=== PATIENT | female | born 1965 | race Caucasian/White ===

== ENCOUNTER 2017-09-26 13:55 | Inpatient (IN) ==
[2017-09-26] MEDS ORDERED: 0.9 % Sodium Chloride 1,000 ML IVC ONE (14:50)
[2017-09-26] MEDS ORDERED: Metoclopramide 10 MG/2 ML VIAL IVP ONE (14:52)
[2017-09-26 15:20] LABS: Basophils % 0.1 %; Eosinophils % 0.1 %; Hematocrit 36.9 % (35.3-44.9); Hemoglobin 13.1 g/dL (11.5-15.4); Immature Granulocytes % 0.5 % (0-4); Lymphocytes % 10.9 %; Mean Corpuscular HGB Conc 35.5 g/dL (31.6-35.5); Mean Corpuscular Hemoglobin 34.7 pg (28.0-33.3); Mean Corpuscular Volume 97.9 fL (83.0-100.0); Mean Platelet Volume 8.6 fL (9.4-12.4); Monocytes # 0.6 K/mcL (0.0-1.3); Monocytes % 6.4 %; Neutrophils # 7.7 K/mcL (1.6-8.9); Platelet Count 143 K/mcL (140-400); Red Blood Count 3.77 M/mcL (3.82-4.97); Red Cell Distribution Width 12.6 % (11.5-14.5)
--- NOTE | 2017-09-26 15:36 | Emergency Department Note ---
Disposition Clinical Impression: Acute hyponatremia Pneumonia Qualifiers: Pneumonia type: due to unspecified organism Laterality: unspecified laterality Lung location: unspecified part of lung Qualified Code(s): J18.9 - Pneumonia, unspecified organism Disposition: Admitted As Inpatient Condition: Fair Referrals: Sally Lynn CNP [Primary Care Provider] - Forms: ED Satisfaction Letter, Work/School Release Time of Disposition: 18:24 Abdominal Pain HPI - General Chief Complaint: ED General Medical Stated Complaint: ABD Pain,Cough Time Seen by Provider: 09/26/17 14:05 Source: patient Nursing Notes Reviewed: Yes Vital Signs Reviewed: Yes - History of Present Illness HPI Narrative: 52-year-old female complains of abdominal pain that has worsened over the past 3 days. Patient states she has been having severe bouts of coughing which she was placed on antibiotics to cover for a sinusitis/possible respiratory infection. Patient states her pain initially was very low maybe 1/10 but is currently 10/10 and worse with coughing. Patient's abdominal pain symptoms are now constant and has a burning character. After arrival here the ED patient noticed an area of ecchymosis in the right upper quadrant of her abdomen. This area of ecchymosis is over patient's most painful area. Patient also admits to associated diarrhea of nonbloody stool in color but no severely foul odors. Pain Scale: 0 - Related Data Home Medications Medication Instructions Recorded Confirmed Baclofen 20 mg PO 2-3XD 09/26/17 09/26/17 Citalopram [CeleXA] 20 mg PO DAILY 09/26/17 09/26/17 Gabapentin [Neurontin] PRN 09/26/17 Ibuprofen [Motrin] 800 mg PO 09/26/17 Lisinopril-HCTZ 20-12.5 [Prinzide 1 each PO 09/26/17 20-12.5] [place]-3/Dha/Epa/Fish Oil [Fish Oil 1 each PO 09/26/17 09/26/17 1,000 mg Softgel] OxyCODONE/APAP 7.5/325 [Percocet 1 each PO Q8HR PRN 09/26/17 09/26/17 7.5/325 MG] Allergies Allergy/AdvReac Type Severity Reaction Status Date / Time Amoxicillin Allergy Vomiting Verified 09/26/17 14:20 Abdominal Pain PMH - Past Medical History Medical history: Reports: non-contributory Female Surgical History: Reports: no surgical history, non-contributory Psychiatric history: Reports: anxiety, depression - Social History Smoking status: Current every day smoker Alcohol use: Reports: unknown, heavy Drug use: Reports: none Physical Exam - General Limitations: no limitations General appearance: alert, in no apparent distress Course - Reevaluation(s) Reevaluation #1: Lab called with a critically low sodium of 117. Labs for urine sodium, creatinine, also probably ordered to investigate for SIADH. Patient does not appear fluid overloaded. When I told the patient about her low sodium she stated that several years ago she had an incident with extremely low sodium but was not told how low it was. She was offered an admission at that time but did not take it because she did not have anybody to take care of her dog. Time: 15:47 Reevaluation #2: 60 g fentanyl order for pain. Patient found to have pneumonia and was started on azithromycin and ceftriaxone for community-acquired pneumonia. Patient understands and accepts decision for admission. Time: 16:48 Vital Signs Temperature 99.2 F 09/26/17 13:58 Pulse Rate 94 09/26/17 13:58 Respiratory Rate 18 09/26/17 13:58 Blood Pressure 152/85 09/26/17 13:58 O2 Sat by Pulse Oximetry 99 09/26/17 13:58 Temperature 99.2 F 09/26/17 13:58 Pulse Rate 99 09/26/17 16:35 Respiratory Rate 18 09/26/17 16:35 Blood Pressure 139/89 09/26/17 16:35 O2 Sat by Pulse Oximetry 96 09/26/17 16:35 Oxygen Delivery Oxygen Delivery Room Air Abdominal Pain - [facility] Narrative Medical decision making narrative: Patient presents with abdominal pain the past several days along with severe cough that was started from recent viral syndrome with associated sinusitis. Patient concern for possible pneumonia, but patient has an area of ecchymosis and right upper quadrant with associated severe tenderness to right lower costal region on the right anterior chest wall as well as right upper quadrant abdominal pain. Patient states she also has complaint of diarrhea but denies any signs of blood in her stool. FAST exam showed no evidence of intra- abdominal bleeding. CT scan abdomen and pelvis with contrast was taken to identify possible peritoneal hemorrhage or other intra-abdominal complication. CT scan was negative for any abnormalities. Chest x-ray however did show multiple opacities consistent with pneumonia bilateral lung maynard. IMPRESSION: Per radiology Scattered mild perihilar and infrahilar opacities, which could represent atelectasis or small infiltrates. Patient was started on 1 g ceftriaxone IV and 500 mg azithromycin IV. Patient was given 10 mg of Reglan and 25 mg of Benadryl for possible migraine headache. She is also started on IV normal saline 1 L. Lab work identified severe hyponatremia at 117. Patient's IV normal saline was slowed down to keep vein open rate at 75 mL per hour. Urine sodium, creatinine and osmolality was ordered. Given patient's hyponatremia and pneumonia patient is being admitted for further evaluation and treatment. The patient understands and agrees to treatment and plan. Dr. Diamond the hospitalist as accepted patient for admission at 1710 hrs. - Lab Data Lab results reviewed: Yes I reviewed the patient's lab results. Lab results narrative: Short CBC 09/26/17 Range/Units 15:00 WBC 9.4 (4.3-11.1) K/mcL Hgb 13.1 (11.5-15.4) g/dL Hct 36.9 (35.3-44.9) % Plt Count 143 (140-400) K/mcL Neutrophils # 7.7 (1.6-8.9) K/mcL BMP 09/26/17 Range/Units 15:00 Sodium 117 L* (136-145) mEq/L Potassium 3.5 (3.5-5.1) mEq/L Chloride 87 L (98-107) mEq/L Carbon Dioxide 20 L (23-29) mEq/L BUN 9 (6-20) mg/dL Creatinine 0.75 (0.60-1.20) mg/dL Glucose 124 H (70-105) mg/dL Calcium 8.6 (8.6-10.3) mg/dL Liver Function 09/26/17 Range/Units 15:00 Total Bilirubin 0.3 (0.3-1.0) mg/dL Direct Bilirubin 0.2 (0.0-0.2) mg/dL AST 40 H (13-39) Units/L ALT 29 (7-52) Units/L Alkaline Phosphatase 73 (34-104) Units/L Albumin 4.1 (3.5-5.7) g/dL Result diagrams: 09/26/17 15:00 09/26/17 15:00 Lab Results 09/26/17 09/26/17 09/26/17 Range/Units 15:00 15:00 15:00 WBC 9.4 (4.3-11.1) K/mcL RBC 3.77 L (3.82-4.97) M/mcL Hgb 13.1 (11.5-15.4) g/dL Hct 36.9 (35.3-44.9) % MCV 97.9 (83.0-100.0) fL MCH 34.7 H (28.0-33.3) pg MCHC 35.5 (31.6-35.5) g/dL RDW 12.6 (11.5-14.5) % Plt Count 143 (140-400) K/mcL MPV 8.6 L (9.4-12.4) fL Immature Gran % 0.5 (0-4) % Seg Neutrophils % 82.0 % Lymphocytes % 10.9 % Monocytes % 6.4 % Eosinophils % 0.1 % Basophils % 0.1 % Neutrophils # 7.7 (1.6-8.9) K/mcL Lymphocytes # 1.0 (0.6-4.6) K/mcL Monocytes # 0.6 (0.0-1.3) K/mcL Eosinophils # 0.0 (0.0-0.6) K/mcL Basophils # 0.0 (0.0-0.2) K/mcL Sodium 117 L* (136-145) mEq/L Potassium 3.5 (3.5-5.1) mEq/L Chloride 87 L (98-107) mEq/L Carbon Dioxide 20 L (23-29) mEq/L BUN 9 (6-20) mg/dL Creatinine 0.75 (0.60-1.20) mg/dL Est GFR ( Amer) > 60 (> 60) Est GFR (Non-Af Amer) > 60 (> 60) BUN/Creatinine Ratio 12 (6-26) Glucose 124 H (70-105) mg/dL Calculated Osmolality 244 L (280-300) Calcium 8.6 (8.6-10.3) mg/dL Total Bilirubin 0.3 (0.3-1.0) mg/dL Direct Bilirubin 0.2 (0.0-0.2) mg/dL Indirect Bilirubin 0.1 (0.0-1.2) mg/dL AST 40 H (13-39) Units/L ALT 29 (7-52) Units/L Alkaline Phosphatase 73 (34-104) Units/L Serum Total Protein 6.7 (6.4-8.9) g/dL Albumin 4.1 (3.5-5.7) g/dL Globulin 2.6 (2.4-3.5) g/dL Albumin/Globulin Ratio 1.6 (1.1-2.2) Lipase 101 H (11-82) Units/L TSH 0.879 (0.340-5.600) mcIU/mL Urine Creatinine mg/dL Urine Sodium mEq/L 09/26/17 09/26/17 Range/Units 16:01 16:01 WBC (4.3-11.1) K/mcL RBC (3.82-4.97) M/mcL Hgb (11.5-15.4) g/dL Hct (35.3-44.9) % MCV (83.0-100.0) fL MCH (28.0-33.3) pg MCHC (31.6-35.5) g/dL RDW (11.5-14.5) % Plt Count (140-400) K/mcL MPV (9.4-12.4) fL Immature Gran % (0-4) % Seg Neutrophils % % Lymphocytes % % Monocytes % % Eosinophils % % Basophils % % Neutrophils # (1.6-8.9) K/mcL Lymphocytes # (0.6-4.6) K/mcL Monocytes # (0.0-1.3) K/mcL Eosinophils # (0.0-0.6) K/mcL Basophils # (0.0-0.2) K/mcL Sodium (136-145) mEq/L Potassium (3.5-5.1) mEq/L Chloride (98-107) mEq/L Carbon Dioxide (23-29) mEq/L BUN (6-20) mg/dL Creatinine (0.60-1.20) mg/dL Est GFR ( Amer) (> 60) Est GFR (Non-Af Amer) (> 60) BUN/Creatinine Ratio (6-26) Glucose (70-105) mg/dL Calculated Osmolality (280-300) Calcium (8.6-10.3) mg/dL Total Bilirubin (0.3-1.0) mg/dL Direct Bilirubin (0.0-0.2) mg/dL Indirect Bilirubin (0.0-1.2) mg/dL AST (13-39) Units/L ALT (7-52) Units/L Alkaline Phosphatase (34-104) Units/L Serum Total Protein (6.4-8.9) g/dL Albumin (3.5-5.7) g/dL Globulin (2.4-3.5) g/dL Albumin/Globulin Ratio (1.1-2.2) Lipase (11-82) Units/L TSH (0.340-5.600) mcIU/mL Urine Creatinine 18 mg/dL Urine Sodium 39.4 mEq/L - Radiology Data Radiology results reviewed: Yes I reviewed the patient's radiology results. Chest X-Ray 09/26/17 14:48 IMPRESSION: Scattered mild perihilar and infrahilar opacities, which could represent atelectasis or small infiltrates. D/ / Gideon Salamanca MD / Gideon Salamanca MD Interpreting Provider: Gideon Salamanca MD Abdomen/Pelvis CT 09/26/17 15:20 IMPRESSION: Unremarkable CT abdomen and pelvis without evidence of acute process. Degenerative grade 1 anterolisthesis L4 on L5. Calcific atherosclerotic disease aorta. D/ / Robert Mon / Robert Mon Interpreting Provider: Robert Mon
--- NOTE | 2017-09-26 15:37 | Emergency Department Note ---
Disposition Clinical Impression: Acute hyponatremia Pneumonia Qualifiers: Pneumonia type: due to unspecified organism Laterality: unspecified laterality Lung location: unspecified part of lung Qualified Code(s): J18.9 - Pneumonia, unspecified organism Disposition: Admitted As Inpatient Condition: Good General Adult HPI - General Chief complaint: ED General Medical Stated complaint: ABD Pain,Cough Time Seen by Provider: 09/26/17 14:05 Source: patient Limitations: no limitations - History of Present Illness Pain Scale: 0 - Related Data Home Medications Medication Instructions Recorded Confirmed Baclofen 20 mg PO TID 09/26/17 09/26/17 Citalopram [CeleXA] 20 mg PO DAILY 09/26/17 09/27/17 Gabapentin [Neurontin] 800 mg PO TID 09/26/17 09/27/17 Lisinopril-HCTZ 20-12.5 [Prinzide 1 each PO DAILY 09/26/17 09/27/17 20-12.5] [place]-3/Dha/Epa/Fish Oil [Fish Oil 1 each PO HS 09/26/17 09/27/17 1,000 mg Softgel] OxyCODONE/APAP 7.5/325 [Percocet 1 each PO Q6HR PRN 09/26/17 09/26/17 7.5/325 MG] Fluticasone Propionate Nasal 1 spray NS DAILY 09/27/17 09/27/17 [Flonase] Ranitidine HCl [Zantac 75] 75 mg PO QAM 09/27/17 09/27/17 Previous Rx's Medication Instructions Recorded Azithromycin [Zithromax] 250 mg PO DAILY 5 Days #5 tablet 09/28/17 Cefdinir [Omnicef] 300 mg PO BID 5 Days #10 capsule 09/28/17 Allergies Allergy/AdvReac Type Severity Reaction Status Date / Time Amoxicillin Allergy Vomiting Verified 09/27/17 13:02 Past Medical History - Past Medical History Medical history: Reports: non-contributory Psychiatric history: Reports: anxiety, depression - Social History Smoking Status: Current every day smoker Smokeless Tobacco Status: No Alcohol use: Reports: unknown, heavy Drug use: Reports: none Physical Exam - General Limitations: no limitations General appearance: alert, in no apparent distress Course Vital Signs Temperature 99.2 F 09/26/17 13:58 Pulse Rate 94 09/26/17 13:58 Respiratory Rate 18 09/26/17 13:58 Blood Pressure 152/85 09/26/17 13:58 O2 Sat by Pulse Oximetry 99 09/26/17 13:58 Temperature 97.5 F L 09/28/17 16:44 Pulse Rate 85 09/28/17 16:44 Respiratory Rate 17 09/28/17 16:44 Blood Pressure 125/78 09/28/17 16:44 O2 Sat by Pulse Oximetry 98 09/28/17 16:44 Oxygen Delivery Oxygen Delivery Room Air Medical Decision Making - Lab Data Result diagrams: 09/28/17 03:43 09/28/17 03:43 Lab Results 09/26/17 09/26/17 09/26/17 Range/Units 15:00 15:00 15:00 WBC 9.4 (4.3-11.1) K/mcL RBC 3.77 L (3.82-4.97) M/mcL Hgb 13.1 (11.5-15.4) g/dL Hct 36.9 (35.3-44.9) % MCV 97.9 (83.0-100.0) fL MCH 34.7 H (28.0-33.3) pg MCHC 35.5 (31.6-35.5) g/dL RDW 12.6 (11.5-14.5) % Plt Count 143 (140-400) K/mcL MPV 8.6 L (9.4-12.4) fL Immature Gran % 0.5 (0-4) % Seg Neutrophils % 82.0 % Lymphocytes % 10.9 % Monocytes % 6.4 % Eosinophils % 0.1 % Basophils % 0.1 % Neutrophils # 7.7 (1.6-8.9) K/mcL Lymphocytes # 1.0 (0.6-4.6) K/mcL Monocytes # 0.6 (0.0-1.3) K/mcL Eosinophils # 0.0 (0.0-0.6) K/mcL Basophils # 0.0 (0.0-0.2) K/mcL Sodium 117 L* (136-145) mEq/L Potassium 3.5 (3.5-5.1) mEq/L Chloride 87 L (98-107) mEq/L Carbon Dioxide 20 L (23-29) mEq/L BUN 9 (6-20) mg/dL Creatinine 0.75 (0.60-1.20) mg/dL Est GFR ( Amer) > 60 (> 60) Est GFR (Non-Af Amer) > 60 (> 60) BUN/Creatinine Ratio 12 (6-26) Glucose 124 H (70-105) mg/dL Calculated Osmolality 244 L (280-300) Calcium 8.6 (8.6-10.3) mg/dL Total Bilirubin 0.3 (0.3-1.0) mg/dL Direct Bilirubin 0.2 (0.0-0.2) mg/dL Indirect Bilirubin 0.1 (0.0-1.2) mg/dL AST 40 H (13-39) Units/L ALT 29 (7-52) Units/L Alkaline Phosphatase 73 (34-104) Units/L Serum Total Protein 6.7 (6.4-8.9) g/dL Albumin 4.1 (3.5-5.7) g/dL Globulin 2.6 (2.4-3.5) g/dL Albumin/Globulin Ratio 1.6 (1.1-2.2) Lipase 101 H (11-82) Units/L TSH 0.879 (0.340-5.600) mcIU/mL Urine Color (Yellow) Urine Clarity (Clear) Urine pH (5.0-8.0) pH Units Ur Specific [place] (1.010-1.025) Urine Protein (Neg-Trace) mg/dL Urine Glucose (UA) (Normal) mg/dL Urine Ketones (Negative) mg/dL Urine Blood (Negative) Urine Nitrite (Negative) Urine Bilirubin (Negative) Urine Urobilinogen (Normal) mg/dL Ur Leukocyte Esterase (Negative) Urine Microscopic RBC (0-3) per hpf Urine Microscopic WBC (0-3) per hpf Ur Squamous Epith Cells (None-Few) per lpf Urine Bacteria (None-Few) per hpf Hyaline Casts (None-Few) per lpf Urine Osmolality (300-1090) mOsm/kg Urine Creatinine mg/dL Urine Sodium mEq/L 09/26/17 09/26/17 09/26/17 Range/Units 15:42 15:42 16:01 WBC (4.3-11.1) K/mcL RBC (3.82-4.97) M/mcL Hgb (11.5-15.4) g/dL Hct (35.3-44.9) % MCV (83.0-100.0) fL MCH (28.0-33.3) pg MCHC (31.6-35.5) g/dL RDW (11.5-14.5) % Plt Count (140-400) K/mcL MPV (9.4-12.4) fL Immature Gran % (0-4) % Seg Neutrophils % % Lymphocytes % % Monocytes % % Eosinophils % % Basophils % % Neutrophils # (1.6-8.9) K/mcL Lymphocytes # (0.6-4.6) K/mcL Monocytes # (0.0-1.3) K/mcL Eosinophils # (0.0-0.6) K/mcL Basophils # (0.0-0.2) K/mcL Sodium (136-145) mEq/L Potassium (3.5-5.1) mEq/L Chloride (98-107) mEq/L Carbon Dioxide (23-29) mEq/L BUN (6-20) mg/dL Creatinine (0.60-1.20) mg/dL Est GFR ( Amer) (> 60) Est GFR (Non-Af Amer) (> 60) BUN/Creatinine Ratio (6-26) Glucose (70-105) mg/dL Calculated Osmolality (280-300) Calcium (8.6-10.3) mg/dL Total Bilirubin (0.3-1.0) mg/dL Direct Bilirubin (0.0-0.2) mg/dL Indirect Bilirubin (0.0-1.2) mg/dL AST (13-39) Units/L ALT (7-52) Units/L Alkaline Phosphatase (34-104) Units/L Serum Total Protein (6.4-8.9) g/dL Albumin (3.5-5.7) g/dL Globulin (2.4-3.5) g/dL Albumin/Globulin Ratio (1.1-2.2) Lipase (11-82) Units/L TSH (0.340-5.600) mcIU/mL Urine Color Yellow (Yellow) Urine Clarity Clear (Clear) Urine pH 6.5 (5.0-8.0) pH Units Ur Specific [place] 1.009 L (1.010-1.025) Urine Protein Negative (Neg-Trace) mg/dL Urine Glucose (UA) Normal (Normal) mg/dL Urine Ketones Negative (Negative) mg/dL Urine Blood Trace H (Negative) Urine Nitrite Negative (Negative) Urine Bilirubin Negative (Negative) Urine Urobilinogen Normal (Normal) mg/dL Ur Leukocyte Esterase Negative (Negative) Urine Microscopic RBC 0-3 (0-3) per hpf Urine Microscopic WBC 0-3 (0-3) per hpf Ur Squamous Epith Cells Few (None-Few) per lpf Urine Bacteria None Seen (None-Few) per hpf Hyaline Casts None Seen (None-Few) per lpf Urine Osmolality 164 L (300-1090) mOsm/kg Urine Creatinine mg/dL Urine Sodium 39.4 mEq/L 09/26/17 Range/Units 16:01 WBC (4.3-11.1) K/mcL RBC (3.82-4.97) M/mcL Hgb (11.5-15.4) g/dL Hct (35.3-44.9) % MCV (83.0-100.0) fL MCH (28.0-33.3) pg MCHC (31.6-35.5) g/dL RDW (11.5-14.5) % Plt Count (140-400) K/mcL MPV (9.4-12.4) fL Immature Gran % (0-4) % Seg Neutrophils % % Lymphocytes % % Monocytes % % Eosinophils % % Basophils % % Neutrophils # (1.6-8.9) K/mcL Lymphocytes # (0.6-4.6) K/mcL Monocytes # (0.0-1.3) K/mcL Eosinophils # (0.0-0.6) K/mcL Basophils # (0.0-0.2) K/mcL Sodium (136-145) mEq/L Potassium (3.5-5.1) mEq/L Chloride (98-107) mEq/L Carbon Dioxide (23-29) mEq/L BUN (6-20) mg/dL Creatinine (0.60-1.20) mg/dL Est GFR ( Amer) (> 60) Est GFR (Non-Af Amer) (> 60) BUN/Creatinine Ratio (6-26) Glucose (70-105) mg/dL Calculated Osmolality (280-300) Calcium (8.6-10.3) mg/dL Total Bilirubin (0.3-1.0) mg/dL Direct Bilirubin (0.0-0.2) mg/dL Indirect Bilirubin (0.0-1.2) mg/dL AST (13-39) Units/L ALT (7-52) Units/L Alkaline Phosphatase (34-104) Units/L Serum Total Protein (6.4-8.9) g/dL Albumin (3.5-5.7) g/dL Globulin (2.4-3.5) g/dL Albumin/Globulin Ratio (1.1-2.2) Lipase (11-82) Units/L TSH (0.340-5.600) mcIU/mL Urine Color (Yellow) Urine Clarity (Clear) Urine pH (5.0-8.0) pH Units Ur Specific [place] (1.010-1.025) Urine Protein (Neg-Trace) mg/dL Urine Glucose (UA) (Normal) mg/dL Urine Ketones (Negative) mg/dL Urine Blood (Negative) Urine Nitrite (Negative) Urine Bilirubin (Negative) Urine Urobilinogen (Normal) mg/dL Ur Leukocyte Esterase (Negative) Urine Microscopic RBC (0-3) per hpf Urine Microscopic WBC (0-3) per hpf Ur Squamous Epith Cells (None-Few) per lpf Urine Bacteria (None-Few) per hpf Hyaline Casts (None-Few) per lpf Urine Osmolality (300-1090) mOsm/kg Urine Creatinine 18 mg/dL Urine Sodium mEq/L Attestation Statement - Attestation Attestation: I examined this patient and my medical decision-making was reviewed with the [employer]/PA/Advanced Practice Nurse/Resident Physician. I agree with the documented findings, disposition and treatment plan as described except to the extent set forth below. The patient presents with a cough which has been going on for the last 3 days and then after the cough started developed abdominal pain and does have a bruise on the abdomen and does have moderate pain with palpation but soft without rigidity, rebound, guarding and the patient will have testing including CT scan of the abdomen however likely this is more secondary to muscular strain secondary to a cough from either a sinusitis or viral syndrome. Results pending. [id number] I did review the EKG showing sinus tachycardia with a rate of 100 and without acute ischemic changes or evidence of arrhythmia. The patient is profoundly hyponatremic and she did receive approximately 500 mL of normal daily and the sodium level return this was stopped but can be resumed pending further ongoing evaluation and management. The patient will be admitted to the hospital. [id number]
[2017-09-26 15:48] LABS: Alanine Aminotransferase 29 Units/L (7-52); Albumin 4.1 g/dL (3.5-5.7); Albumin/Globulin Ratio 1.6 (1.1-2.2); Alkaline Phosphatase 73 Units/L (34-104); Aspartate Amino Transferase 40 Units/L (13-39); Bilirubin,Direct 0.2 mg/dL (0.0-0.2); Bilirubin,Indirect 0.1 mg/dL (0.0-1.2); Bilirubin,Total 0.3 mg/dL (0.3-1.0); Blood Urea Nitrogen 9 mg/dL (6-20); Calcium 8.6 mg/dL (8.6-10.3); Carbon Dioxide 20 mEq/L (23-29); Chloride 87 mEq/L (98-107); Globulin 2.6 g/dL (2.4-3.5); Glucose 124 mg/dL (70-105); Osmolality,Calculated 244 (280-300); Potassium 3.5 mEq/L (3.5-5.1); Sodium 117 mEq/L (136-145); Total Protein 6.7 g/dL (6.4-8.9)
[2017-09-26 16:07] LABS: BUN/Creatinine Ratio 12 (6-26); eGFR For African Americans > 60 (> 60); eGFR For Non-African Americans > 60 (> 60)
[2017-09-26 16:32] LABS: Thyroid Stimulating Hormone 0.879 mcIU/mL (0.340-5.600)
[2017-09-26] MEDS ORDERED: *HR* FentaNYL (PF) 100 MCG/2 ML VIAL IVP ONE (16:47)
[2017-09-26] MEDS ORDERED: Azithromycin 500 MG in D5% in Water 250 ML IVPB ONE (16:56)
[2017-09-26] MEDS ORDERED: cefTRIAXone 2,000 MG in Water for inj. (sterile) 20 ML IVP ONE (16:56)
--- NOTE | 2017-09-26 18:36 | Internal Med History&Physical ---
Date of Encounter: 09/26/17 Time of Encounter: 18:00 Assessment and Plan (1) Pneumonia Current visit: Yes Status: Acute Patient with nonproductive cough and shortness of breath and chest x-ray with concerns for infiltrate Will continue IV ceftriaxone and azithromycin for acute [place] acquired pneumonia Qualifiers: Pneumonia type: due to unspecified organism Laterality: unspecified laterality Lung location: unspecified part of lung Qualified Code(s): J18.9 - Pneumonia, unspecified organism (2) Acute hyponatremia Current visit: Yes Status: Acute Patient reports of a history of hyponatremia in the past approximately 1 year ago but unsure of details Sodium this admission [address] on fluid restriction and give normal saline Monitor sodium levels (3) Alcohol dependence Current visit: Yes Status: Acute We will cover with CIWA protocol Qualifiers: Qualified Code(s): F10.20 - Alcohol dependence, uncomplicated (4) HTN (hypertension), benign Current visit: Yes Status: Acute Controlled; continue home medications (5) DVT prophylaxis Current visit: Yes Status: Acute Subcutaneous heparin Internal Medicine - H&P: HPI Chief complaint: Cough/shortness of breath Admitted From: Home Plans for Post Hospital Care: Home History of present illness: Patient is a 52-year-old female with past medical history significant for alcohol dependence, hypertension and chronic pain who presents to the ER on 09/26 due to nonproductive cough and shortness of breath. Patient reports a one-week history of nonproductive cough and a 2 day history of shortness of breath. She reports of associated symptoms of fever/chills. Patient reports of going to primary care provider and being diagnosed with sinusitis and given a course of antibiotics. Patient reported no improvement and decided to come to the ER for evaluation In the ER, patient was found to have hyponatremia with a sodium of 117. Chest x -ray showed findings concerning for infiltrate. She will be admitted to medical surgical floor for hyponatremia and community acquired pneumonia management. Past Med Surg Social Fam HX - Past Medical History Medical history: non-contributory Psychiatric history: anxiety, depression - Past Surgical History Surgical History: no surgical history - Social History Smoking Status: Current every day smoker Packs per day: 1 Smokeless Tobacco Status: No Alcohol use: unknown, heavy Drug use: none Internal Medicine - H&P: Meds Baclofen 20 mg PO 2-3XD 09/26/17 [History] Citalopram [CeleXA] 20 mg PO DAILY 09/26/17 [History] Gabapentin [Neurontin] PRN 09/26/17 [History] Ibuprofen [Motrin] 800 mg PO 09/26/17 [History] Lisinopril-HCTZ 20-12.5 [Prinzide 20-12.5] 1 each PO 09/26/17 [History] [place]-3/Dha/Epa/Fish Oil [Fish Oil 1,000 mg Softgel] 1 each PO 09/26/17 [History ] OxyCODONE/APAP 7.5/325 [Percocet 7.5/325 MG] 1 each PO Q8HR PRN 09/26/17 [ History] 3 Allergy/AdvReac Type Severity Reaction Status Date / Time Amoxicillin Allergy Vomiting Verified 09/26/17 14:20 All Systems PM: A 10-system review of systems was performed and is negative for pertinent findings except as documented above in the HPI. - Constitutional Vitals: Temp Pulse Resp BP Pulse Ox 99.4 F 110 16 112/72 95 09/26/17 18:13 09/26/17 18:13 09/26/17 18:13 09/26/17 18:13 09/26/17 18:13 General appearance: Present: A&O X 3 - Head Head exam: Present: normocephalic - Eye Eye exam: Present: normal appearance - ENT ENT exam: Present: mucous membranes dry, mucous membranes moist - Respiratory Respiratory exam: Present: CTAB. Absent: accessory muscle use, rales, rhonchi, wheezes - Cardiovascular Cardiovascular exam: Present: RRR, +S1, +S2. Absent: diastolic murmur, gallop, rubs, systolic murmur - GI/Abdominal GI/Abdominal exam: Present: soft, tenderness. Absent: distended - Extremities Exam Extremities exam: Absent: pedal edema - Neurological Exam Neurological exam: Present: oriented X3 - Psychiatric Psychiatric exam: Present: normal mood - Skin Skin exam: Present: normal color Internal Med - H&P Results - Labs CBC & Chem 7: 09/26/17 15:00 09/26/17 15:00
[2017-09-26] MEDS ORDERED: Naloxone 0.4 MG/ML INJ IVP PRN (18:42)
[2017-09-26] MEDS ORDERED: *HR* LORazepam 2 MG/ML VIAL IVP PRN (18:47)
[2017-09-26] MEDS: 0.9 % Sodium Chloride 1,000 ML IVC SCH (19:04)
[2017-09-26 19:59] LABS: Bilirubin,Urine Negative (Negative); Clarity,Urine Clear (Clear); Color,Urine Yellow (Yellow); Glucose,Urine (UA) Normal (Normal); Ketones,Urine Negative (Negative); Leukocyte Esterase,Urine Negative (Negative); Nitrite,Urine Negative (Negative); PH,Urine 6.5 pH Units (5.0-8.0); Protein,Urine Negative (Neg-Trace); Specific Gravity,Urine 1.009 (1.010-1.025); Urobilinogen,Urine Normal (Normal)
[2017-09-26] MEDS ORDERED: Acetaminophen 325 MG TABLET PO PRN (20:01)
[2017-09-26 20:05] LABS: Bacteria,Urine None Seen per hpf (None-Few); Blood,Urine Trace (Negative); Hyaline Casts,Urine None Seen per lpf (None-Few); RBC,Urine 0-3 per hpf (0-3); Squamous Epithelial Cell,Urine Few per lpf (None-Few); WBC,Urine 0-3 per hpf (0-3)
[2017-09-26] MEDS: Nicotine 21 MG PATCH.TD24 TD SCH (20:40)
[2017-09-26] MEDS: *HR* OxyCODONE/APAP 7.5/325 TABLET PO PRN (20:40)
[2017-09-26] MEDS: *HR* Heparin 5,000 UNIT/ML VIAL SQ SCH (23:50)
[2017-09-26] MEDS: Baclofen 10 MG TABLET PO SCH (23:50)
[2017-09-26] MEDS: Gabapentin 400 MG CAPSULE PO SCH (23:50)
[2017-09-27 05:42] LABS: Hematocrit 37.1 % (35.3-44.9); Hemoglobin 13.2 g/dL (11.5-15.4); Immature Granulocytes % 0.6 % (0-4); Lymphocytes # 1.4 K/mcL (0.6-4.6); Lymphocytes % 19.7 %; Mean Corpuscular HGB Conc 35.6 g/dL (31.6-35.5); Mean Corpuscular Hemoglobin 35.1 pg (28.0-33.3); Mean Corpuscular Volume 98.7 fL (83.0-100.0); Mean Platelet Volume 9.1 fL (9.4-12.4); Monocytes # 0.8 K/mcL (0.0-1.3); Monocytes % 10.3 %; Platelet Count 168 K/mcL (140-400); Red Blood Count 3.76 M/mcL (3.82-4.97); Red Cell Distribution Width 12.6 % (11.5-14.5); Segmented Neutrophils % 69.4 %
[2017-09-27 05:50] LABS: Neutrophils # 5.1 K/mcL (1.6-8.9)
[2017-09-27 06:00] LABS: BUN/Creatinine Ratio 10 (6-26); Blood Urea Nitrogen 6 mg/dL (6-20); Calcium 8.6 mg/dL (8.6-10.3); Carbon Dioxide 25 mEq/L (23-29); Chloride 96 mEq/L (98-107); Glucose 103 mg/dL (70-105); Osmolality,Calculated 264 (280-300); Potassium 3.8 mEq/L (3.5-5.1); Sodium 128 mEq/L (136-145); eGFR For African Americans > 60 (> 60); eGFR For Non-African Americans > 60 (> 60)
[2017-09-27] MEDS: *HR* Heparin 5,000 UNIT/ML VIAL SQ SCH ×3 (06:01→22:11)
[2017-09-27 06:09] LABS: Platelet Estimate Normal (Normal); Reactive Lymphocytes Present (Not Present); Toxic Granulation Present (Not Present)
[2017-09-27] MEDS: Lisinopril-HCTZ 20-12.5mg TABLET PO SCH (07:55)
[2017-09-27] MEDS: Baclofen 10 MG TABLET PO SCH ×3 (07:55→22:11)
[2017-09-27] MEDS: Thiamine (B-1) 100 MG TABLET PO SCH (07:55)
[2017-09-27] MEDS: Vitamin B Complex/Vit C/Vit E 1 EACH TABLET PO SCH (07:55)
[2017-09-27] MEDS: Folic Acid 1 MG TABLET PO SCH (07:56)
[2017-09-27] MEDS: Nicotine 21 MG PATCH.TD24 TD SCH (07:56)
[2017-09-27] MEDS: *HR* OxyCODONE/APAP 7.5/325 TABLET PO PRN ×2 (08:03→15:38)
[2017-09-27] MEDS: 0.9 % Sodium Chloride 1,000 ML IVC SCH (11:18)
--- NOTE | 2017-09-27 18:12 | Internal Med Progress Note ---
Date of Encounter: 09/27/17 Time of Encounter: 18:12 - Assessment and plan (1) Pneumonia Current Visit: Yes Status: Acute Assessment and plan: Improved. Continue azithromycin and rocephin. Recheck CBC in AM. Qualifiers: Pneumonia type: due to unspecified organism Laterality: unspecified laterality Lung location: unspecified part of lung Qualified Code(s): J18.9 - Pneumonia, unspecified organism (2) Acute hyponatremia Current Visit: Yes Status: Acute Assessment and plan: Improving. Stopped IVF as tolerating PO. Recheck BMP in AM. (3) Alcohol dependence Current Visit: Yes Status: Chronic Assessment and plan: No withdrawal symptoms. Continue to cover with CIWA protocol. Qualifiers: Qualified Code(s): F10.20 - Alcohol dependence, uncomplicated (4) HTN (hypertension), benign Current Visit: Yes Status: Chronic Assessment and plan: Continue home medications. (5) DVT prophylaxis Current Visit: Yes Status: Acute Assessment and plan: Continue SC heparin. - Time Spent With Patient less than 15 minutes - Subjective Interval history: Patient had no acute events overnight. She states that she is feeling much better this AM. She denies chest pain, SOB, fever, or chills. She has no new complaints. - Constitutional Vitals: Temp Pulse Resp BP Pulse Ox 100.8 F H 93 16 116/78 95 09/27/17 15:51 09/27/17 15:51 09/27/17 15:51 09/27/17 15:51 09/27/17 15:51 General appearance: Present: cooperative, A&O X 3, pleasant, no acute distress, answers questions appropriately - Respiratory Respiratory exam: Present: CTAB. Absent: accessory muscle use, rales, rhonchi, wheezes Additional comments: Normal WOB - Cardiovascular Cardiovascular exam: Present: RRR, +S1, +S2. Absent: diastolic murmur, gallop, rubs, systolic murmur Additional comments: No BLE edema - GI/Abdominal GI/Abdominal exam: Present: normal bowel sounds, soft. Absent: distended, hepatomegaly, mass, splenomegaly, tenderness - Psychiatric Psychiatric exam: Present: normal affect, normal mood. Absent: anxious, depressed - Skin Skin exam: Present: dry, intact, warm. Absent: cyanosis, rash Internal Medicine: Result - Labs CBC & Chem 7: 09/28/17 03:43 09/28/17 03:43 Labs: Short CBC 09/27/17 Range/Units 04:24 WBC 7.3 (4.3-11.1) K/mcL Hgb 13.2 (11.5-15.4) g/dL Hct 37.1 (35.3-44.9) % Plt Count 168 (140-400) K/mcL Neutrophils # 5.1 (1.6-8.9) K/mcL BMP 09/26/17 09/27/17 09/27/17 20:16 00:11 04:24 Sodium 125 L 126 L 128 L Potassium 3.8 Chloride 96 L Carbon Dioxide 25 BUN 6 Creatinine 0.62 Glucose 103 Calcium 8.6 Consult Discharge Plan - Plan Referrals: Sally Lynn CNP [Primary Care Provider] -
[2017-09-27] MEDS ORDERED: cefTRIAXone 2,000 MG in Water for inj. (sterile) 20 ML 20 ML IVP SCH (18:44)
[2017-09-27] MEDS ORDERED: Azithromycin 500 MG in D5% in Water 250 ML IVPB SCH (19:00)
[2017-09-27] MEDS ORDERED: (Fish Oil 1,000 Mg Softgel) PO SCH (21:00)
[2017-09-27] MEDS: Gabapentin 400 MG CAPSULE PO SCH (22:11)
[2017-09-28 04:25] LABS: Basophils % 0.1 %; Eosinophils % 0.1 %; Hematocrit 34.9 % (35.3-44.9); Hemoglobin 12.5 g/dL (11.5-15.4); Immature Granulocytes % 0.4 % (0-4); Lymphocytes % 26.2 %; Mean Corpuscular HGB Conc 35.8 g/dL (31.6-35.5); Mean Corpuscular Hemoglobin 35.3 pg (28.0-33.3); Mean Corpuscular Volume 98.6 fL (83.0-100.0); Mean Platelet Volume 9.3 fL (9.4-12.4); Monocytes # 0.8 K/mcL (0.0-1.3); Monocytes % 10.2 %; Neutrophils # 4.7 K/mcL (1.6-8.9); Platelet Count 198 K/mcL (140-400); Red Blood Count 3.54 M/mcL (3.82-4.97); Red Cell Distribution Width 12.7 % (11.5-14.5)
[2017-09-28 04:42] LABS: BUN/Creatinine Ratio 13 (6-26); Blood Urea Nitrogen 7 mg/dL (6-20); Calcium 8.7 mg/dL (8.6-10.3); Carbon Dioxide 24 mEq/L (23-29); Chloride 97 mEq/L (98-107); Glucose 103 mg/dL (70-105); Osmolality,Calculated 266 (280-300); Potassium 3.5 mEq/L (3.5-5.1); Sodium 129 mEq/L (136-145); eGFR For African Americans > 60 (> 60); eGFR For Non-African Americans > 60 (> 60)
[2017-09-28 04:51] LABS: Platelet Estimate Normal (Normal)
[2017-09-28] MEDS: *HR* Heparin 5,000 UNIT/ML VIAL SQ SCH (05:45)
[2017-09-28] MEDS: Vitamin B Complex/Vit C/Vit E 1 EACH TABLET PO SCH (07:45)
[2017-09-28] MEDS: Baclofen 10 MG TABLET PO SCH (07:45)
[2017-09-28] MEDS: Thiamine (B-1) 100 MG TABLET PO SCH (07:45)
[2017-09-28] MEDS: Lisinopril-HCTZ 20-12.5mg TABLET PO SCH (07:45)
[2017-09-28] MEDS: Folic Acid 1 MG TABLET PO SCH (07:45)
[2017-09-28] MEDS: Nicotine 21 MG PATCH.TD24 TD SCH (07:47)
[2017-09-28] MEDS: *HR* OxyCODONE/APAP 7.5/325 TABLET PO PRN (07:50)
--- NOTE | 2017-09-28 08:23 | Discharge Summary ---
- NOTES TO OUTPATIENT PROVIDER Notes to Outpatient Provider: Follow up with PCP in 2-3 days after discharge. Recheck BMP at that time (mild hyponatremia). Date of Encounter: 09/28/17 Time of Encounter: 08:19 - Discharge Diagnosis (1) Pneumonia Priority: Primary Status: Acute Qualifiers: Pneumonia type: due to unspecified organism Laterality: unspecified laterality Lung location: unspecified part of lung Qualified Code(s): J18.9 - Pneumonia, unspecified organism (2) Acute hyponatremia Priority: Secondary Status: Acute (3) Alcohol dependence Priority: Secondary Status: Chronic Qualifiers: Qualified Code(s): F10.20 - Alcohol dependence, uncomplicated (4) HTN (hypertension), benign Priority: Secondary Status: Chronic (5) DVT prophylaxis Priority: Secondary Status: Acute Hospital course: Ms. Pichardo is a 52 year old female admitted for community acquired pneumonia and mild hyponatremia. She was admitted to general medical floor and place on telemetry. She was started on IV azithromycin and IV rocephin. She was started on IVF. She felt better the next day. IVF stopped as she was tolerating PO diet. Hyponatremia slowly improved; she remained asymptomatic in regards to this. Respiratory status remained stable. She is feeling better today and wants to go home. We will discharge on 5 more days of azithromycin and omnicef. She will follow up with PCP in 2-3 days after discharge. BMP can be rechecked at that time. Patient has met maximum benefit of this hospitalization and will be discharged home in stable condition. Discharge discussed with: patient, nurse - Time Spent with Patient Total time spent providing and/or coordinating discharge services: Greater than 30 minutes - Discharge Medications Prescriptions: Azithromycin [Zithromax] 250 mg PO DAILY 5 Days #5 tablet Cefdinir [Omnicef] 300 mg PO BID 5 Days #10 capsule Home Medications: Baclofen 20 mg PO TID 09/26/17 [History] Citalopram [CeleXA] 20 mg PO DAILY 09/26/17 [History] Gabapentin [Neurontin] 800 mg PO TID 09/26/17 [History] Lisinopril-HCTZ 20-12.5 [Prinzide 20-12.5] 1 each PO DAILY 09/26/17 [History] Weed-3/Dha/Epa/Fish Oil [Fish Oil 1,000 mg Softgel] 1 each PO HS 09/26/17 [ History] OxyCODONE/APAP 7.5/325 [Percocet 7.5/325 MG] 1 each PO Q6HR PRN 09/26/17 [ History] Fluticasone Propionate Nasal [Flonase] 1 spray NS DAILY 09/27/17 [History] Ranitidine HCl [Zantac 75] 75 mg PO QAM 09/27/17 [History] Azithromycin [Zithromax] 250 mg PO DAILY 5 Days #5 tablet 09/28/17 [Rx] Cefdinir [Omnicef] 300 mg PO BID 5 Days #10 capsule 09/28/17 [Rx] Allergies/Adverse Reactions: 3 Allergy/AdvReac Type Severity Reaction Status Date / Time Amoxicillin Allergy Vomiting Verified 09/27/17 13:02 Date of admission: 09/26/17 18:42 Primary care physician: JENIFFER Arroyo Discharging clinician: Frank Amezquita Anticipated date of discharge: 09/28/17 - Constitutional Vitals: Temp Pulse Resp BP Pulse Ox 98.3 F 81 16 124/83 95 09/28/17 06:59 09/28/17 06:59 09/28/17 06:59 09/28/17 06:59 09/28/17 06:59 General appearance: Present: cooperative, A&O X 3, pleasant, no acute distress, answers questions appropriately - Respiratory Respiratory exam: Present: CTAB. Absent: accessory muscle use, rales, rhonchi, wheezes Additional comments: Normal WOB - Cardiovascular Cardiovascular exam: Present: RRR, +S1, +S2. Absent: diastolic murmur, gallop, rubs, systolic murmur Additional comments: No BLE edema - GI/Abdominal GI/Abdominal exam: Present: normal bowel sounds, soft. Absent: distended, hepatomegaly, mass, splenomegaly, tenderness - Psychiatric Psychiatric exam: Present: normal affect, normal mood. Absent: anxious, depressed - Skin Skin exam: Present: dry, intact, warm. Absent: cyanosis, rash - Patient Status Disposition: Home, Self-Care Condition: Good Functional capacity at discharge: independent ambulation Overall status at discharge: patient is progressing back to baseline - Discharge Instructions Follow Up With: Lynn,Sally A, [employer] [Primary Care Provider] - Additional Instructions: Follow up with PCP in 2-3 days after discharge. Recheck BMP at that time (mild hyponatremia). - Diet and Activity Activity: resume usual activities as tolerated Diet: low fat, low cholesterol, low salt diet, other (Cardiac)
[2017-09-28 16:51] VITALS: BP 125/78
--- NOTE | 2017-09-29 12:23 | Electrocardiograph Report ---
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
== END 2017-09-28 10:06 | disposition home or self-care (01) | DRG 194 ==
LOC: 2ANU 13:55 → EMEROO 13:55 → 2ANU 17:52
PROVIDERS: ADMIT Hospitalist; ATTEND Internal Medicine